=== PATIENT | male | born 1985 | race Caucasian/White ===

== ENCOUNTER 2022-05-24 17:46 | Emergency (ER) | payer MEDICAID, OTHER ==
[2022-05-24] MEDS ORDERED: LIDOCAINE 1% 2 ML VIAL MC ONE (19:52)
[2022-05-24] MEDS ORDERED: cefTRIAXone 1 GM VIAL IM STA (19:52)
--- NOTE | 2022-05-24 20:03 | ED Physician Documentation ---
History of Present Illness - Stated complaint Stated Complaint: TOOTH PX - Chief complaint Chief Complaint: Heent - History obtained from History obtained from: Patient - History of Present Illness Timing: Other Pain level max: 6 Pain level now: 6 - Additonal information Additional information: 36-year-old male presents to the emergency department with ongoing left upper dental pain. He states this started several weeks ago but has been steadily worsening. Unable to see a dentist yet. Came here for antibiotics. No fevers. No chills. Worse with eating, drinking. 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 Review of Systems Constitutional: denies: Fever, Chills GI: denies: Vomiting PD PAST MEDICAL HISTORY - Past Medical History Past Medical History: No - Past Surgical History Past Surgical History: No - Present Medications Home Medications: Ambulatory Orders Medication Instructions Recorded Confirmed clindamycin HCL [Cleocin HCl] 300 mg PO Q6H #40 cap 05/24/22 - Allergies Allergies/Adverse Reactions: Allergies Allergy/AdvReac Type Severity Reaction Status Date / Time Penicillins Allergy Anaphylaxis Verified 05/24/22 17:55 - Living Situation Living Arrangement: reports: At home - Social History Does the pt have substance abuse?: Yes Substance Use and Type: Meth - Family History Family history: reports: Non contributory PD ED PE NORMAL - Vitals Vital signs reviewed: Yes - General General: Alert and oriented X 3, No acute distress, Well developed/nourished - HEENT HEENT: PERRL, Moist mucous membranes, Other (Poor dentition throughout. There is a cracked tooth in the left upper molar area. No gingival swelling. No abscess. No facial swelling. Normal phonation. No trismus.) - Neck Neck: No adenopathy - Cardiac Cardiac: RRR - Respiratory Respiratory: No respiratory distress, Clear bilaterally - Derm Derm: Warm and dry - Neuro Neuro: Alert and oriented X 3 Results - Vitals Vitals: Vital Signs - 24 hr 05/24/22 05/24/22 17:52 20:43 Temperature 36.6 C Heart Rate 67 62 Respiratory 18 16 Rate Blood Pressure 148/80 H 135/87 H O2 Saturation 100 100 Oxygen O2 Source Room air PD MEDICAL DECISION MAKING - ED course Complexity details: considered differential, d/w patient ED course: 36-year-old male with poor dentition and multiple dental caries. Will place on antibiotics until he can be seen by dentistry next week. No drainable abscess. Patient counseled regarding signs and symptoms for which I believe and urgent re-evaluation would be necessary. Patient with good understanding of and agreement to plan and is comfortable going home at this time This document was made in part using voice recognition software. While efforts are made to proofread this document, sound alike and grammatical errors may occur. Departure - Departure Disposition: 01 Home, Self Care Clinical Impression: Pain due to dental caries Condition: Good Instructions: ED Tooth Pain Follow-Up: your,dentist next week [Other] Prescriptions: clindamycin HCL [Cleocin HCl] 300 mg PO Q6H #40 cap Comments: Your antibiotics were sent to [facility] in [place]. Please follow-up with a dentist next week for further care. Please return if you worsen. Discharge Date/Time: 05/24/22 20:44
[2022-05-24 20:43] VITALS: BP 135/87
== END 2022-05-24 20:44 | disposition home or self-care (01) ==
LOC: ED 17:46
DX: K02.9 Dental caries, unspecified (principal); K03.81 Cracked tooth; K08.89 Other specified disorders of teeth and supporting structures; F15.10 Other stimulant abuse, uncomplicated
CPT/HCPCS: 96372; 99282; 99283

== ENCOUNTER 2022-06-08 06:19 | Emergency (ER) | payer MEDICAID ==
[2022-06-08 06:27] VITALS: BP 141/86
--- NOTE | 2022-06-08 06:35 | ED Physician Documentation ---
PD HPI HEENT - Stated complaint Stated Complaint: LT SIDE TOOTH PX - Chief complaint Chief Complaint: Heent - History obtained from History obtained from: Patient - History of Present Illness Timing - onset: How many weeks ago (2.5 weeks) Timing - details: Gradual onset Pain level max: 6 Pain level now: 4 Location: Tooth Improves: Nothing Associated symptoms: No: Fever, Unable to swallow Recently seen: Emergency Dept - Additional information Additional information: c/o approximately 2.5 weeks of tooth pain. He was evaluated for this in this ED 05/24/22, given IM rocephin and rx for clindamycin. He has completed the course of clindamycin but no improvement in symptoms; he says the pain has actually, gradually worsened. He says [facility] has told him they cannot evaluate h im until any infection he has is resolved. Review of Systems Constitutional: denies: Fever Throat: reports: Dental pain / toothache. denies: Sore throat PD PAST MEDICAL HISTORY - Past Medical History Past Medical History: No Cardiovascular: None Respiratory: None Neuro: None Endocrine/Autoimmune: None GI: None : None HEENT: None Psych: None Musculoskeletal: None Derm: None - Past Surgical History Past Surgical History: No - Present Medications Home Medications: Ambulatory Orders Medication Instructions Recorded Confirmed Cefdinir 300 mg PO BID #20 cap 06/08/22 HYDROcod/ACETAM 5/325 [[place] 5/325] 1 - 2 tablet PO Q6H PRN #14 tablet 06/08/22 - Allergies Allergies/Adverse Reactions: Allergies Allergy/AdvReac Type Severity Reaction Status Date / Time Penicillins Allergy Anaphylaxis Verified 06/08/22 06:27 - Social History Does the pt smoke?: Yes Smoking Status: Current every day smoker Does the pt drink ETOH?: No Does the pt have substance abuse?: Yes - Immunizations Immunizations are current?: No - POLST Patient has POLST: No PD ED PE NORMAL - Vitals Vital signs reviewed: Yes - General General: Alert and oriented X 3, Well developed/nourished, Other (appears uncomfortable (mild/moderate painful distress)) - Neck Neck: Supple, no meningeal sign PD ED PE EXPANDED - HEENT HEENT: Dental decay (extensive general dental decay/attrition. He has tenderness to percussion of left maxillary first molar (there is only part of the tooth remaining). no gingival swelling, erythema. no discharge. no facial swelling ) Results - Vitals Vitals: Vital Signs - 24 hr 06/08/22 06/08/22 06/08/22 06:25 06:29 07:00 Temperature 37.1 C Heart Rate 88 Respiratory 17 16 16 Rate Blood Pressure 141/86 H O2 Saturation 100 Oxygen O2 Source Room air PD MEDICAL DECISION MAKING - ED course Complexity details: reviewed old records, considered differential, d/w patient ED course: presents with worsening dental pain despite completing full course of clindamycin. He says he has an allergy to penicillin (rash, throat swelling, difficulty breathing). He was given IM rocephin on ED visit 05/24/22 without adverse reaction and thus I am prescribing ten day course of cefdinir. He is requesting pain medication, says ibuprofen is no longer effective. He is given vicodin take-home pack and vicodin is also prescribed. Return precautions discussed. He will continue to pursue follow up with a dentist I am prescribing a short course of short-acting opioid pain medication for this patient. I have reviewed the patients [employer]MENT [employer] and no concerning findings were noted. I have discussed that the opioids are for short term therapy only, and will not be refilled from the ED. Departure - Departure Disposition: 01 Home, Self Care Clinical Impression: Pain due to dental caries Condition: Good Instructions: ED Tooth Pain Prescriptions: Cefdinir 300 mg PO BID #20 cap HYDROcod/ACETAM 5/325 [[place] 5/325] 1 - 2 tablet PO Q6H PRN #14 tablet PRN Reason: Pain Comments: Follow up with a dentist, next available appointment. Prescriptions for hydrocodone/acetaminophen (vicodin; narcotic pain medication) and cefdinir (antibiotic) have been electronically submitted to [facility] in [place]. I am prescribing a short course of narcotic pain medication for you. These are potentially dangerous and addictive medications that should be used carefully. These medications may constipate you. Take an ovfq-amp-iowqlic stool softener (docusate) twice daily with plenty of water while taking these medications. If you go 24 hours without a bowel movement, take [id number] miralax, per package instructions. Do not drink or drive while taking these medications. If you received narcotic or sedating medications while in the emergency department, do not drive for 24 hours. Store this medication in a safe, secure place and out of reach of children. It is a violation of federal law to give or sell this medication to another person or to use in a manner other than prescribed. The ED will not refill narcotic prescriptions, including prescriptions lost or stolen. To dispose of unwanted medications: 1. [facility] [address] in [place] has a medication drop box. They accept prescription medications (in pill form) Friday through Friday 9:00 a.m. to 5:00 p.m. 2. The [facility] accepts prescription medications (in pill form only) for disposal year round. Call for more information. 3. Contact the [facility] for the next [facility] sponsored prescription drug collection event. , [phone], or [phone]; Discharge Date/Time: 06/08/22 07:01
[2022-06-08] MEDS ORDERED: HYDROcod/ACET 5/325 Prepack 4 PO STA (06:48)
== END 2022-06-08 07:01 | disposition home or self-care (01) ==
LOC: ED 06:19
DX: K02.9 Dental caries, unspecified (principal); F17.200 Nicotine dependence, unspecified, uncomplicated
CPT/HCPCS: 99282

== ENCOUNTER 2023-03-26 19:15 | Emergency (ER) | payer MEDICAID ==
[2023-03-26 19:28] VITALS: BP 142/79; O2SAT 99
--- NOTE | 2023-03-26 19:55 | ED Physician Documentation ---
History of Present Illness - Stated complaint Stated Complaint: SOA/FACE SWELLING - Chief complaint Chief Complaint: Heent - Additonal information Additional information: 37-year-old male presenting to the emergency department with right-sided upper jaw pain with facial swelling. Past medical significant for recurrent dental infections and dental decay. Has been seen at this facility twice previously for similar presentation. Reports allergy to penicillins, has responded well to courses of clindamycin in the past. States this is similar to previous dental infections but "never this severe". Denies any fever. Report is waiting for follow-up with primary dentistry. States "can I have something for the pain right now". Review of Systems Constitutional: denies: Fever Eyes: denies: Loss of vision Ears: denies: Loss of hearing Nose: denies: Rhinorrhea / runny nose Throat: reports: Dental pain / toothache Cardiac: denies: Chest pain / pressure Respiratory: denies: Dyspnea GI: denies: Abdominal Pain : denies: Dysuria PD PAST MEDICAL HISTORY - Past Medical History Cardiovascular: None Respiratory: None Neuro: None Endocrine/Autoimmune: None GI: None : None HEENT: None Psych: None Musculoskeletal: None Derm: None - Past Surgical History Past Surgical History: No - Present Medications Home Medications: Ambulatory Orders Medication Instructions Recorded Confirmed Ketorolac [Toradol] 10 mg PO Q6H #30 tablet 03/26/23 clindamycin HCL [Cleocin HCl] 300 mg PO Q6H #40 cap 03/26/23 - Allergies Allergies/Adverse Reactions: Allergies Allergy/AdvReac Type Severity Reaction Status Date / Time Penicillins Allergy Anaphylaxis Verified 03/26/23 19:24 - Social History Does the pt smoke?: Yes Smoking Status: Current every day smoker Does the pt drink ETOH?: No Does the pt have substance abuse?: Yes - Immunizations Immunizations are current?: No - POLST Patient has POLST: No PD ED PE NORMAL - General General: Alert and oriented X 3 - HEENT HEENT: Other (Significant dental decay. Tenderness to palpation along the right upper molar with no palpable apical abscess. No uvular deviation, sublingual elevation or tracheal mobility. Tender right-sided jugulodigastric adenopathy. No exudates or enlarged tonsils.) - Neck Neck: Supple, no meningeal sign - Cardiac Cardiac: RRR - Respiratory Respiratory: No respiratory distress - Abdomen Abdomen: Normal bowel sounds Results - Vitals Vitals: Vital Signs - 24 hr 03/26/23 19:16 Temperature 37.5 C Heart Rate 81 Respiratory 20 Rate Blood Pressure 142/79 H O2 Saturation 99 Oxygen O2 Source Room air PD Medical Decision Making - ED course Complexity details: reviewed results, considered differential, d/w patient ED course: Patient 37-year-old male presenting to the emergency department with recurrent dental infection. No indications apical abscess, peritonsillar abscess, deep space neck infection. Significant poor dentition. Counseled on importance of follow-up with dentistry and appropriate dental hygiene. Patient given hydrocod one and a dose of clindamycin here in the emergency department. Discharged with course of oral Toradol and clindamycin sent to his preferred pharmacy. Clear return precautions given. Departure - Departure Disposition: 01 Home, Self Care Clinical Impression: Pain due to dental caries Instructions: ED Tooth Pain Prescriptions: clindamycin HCL [Cleocin HCl] 300 mg PO Q6H #40 cap Ketorolac [Toradol] 10 mg PO Q6H #30 tablet Comments: Thank you for allowing us to care for you today at [facility]. Today in the emergency department you were diagnosed with a dental infection. I have sent a prescription for clindamycin as well as a strong nonsteroidal anti- inflammatory, Toradol to your preferred pharmacy, [facility] in [place]. It is very important that you follow-up with a dentist as soon as possible. Infection such as this are highly likely to recur without evaluation by a dental professional. I also recommend following up your primary care doctor. I recommend regular use of antiseptic mouthwashes as well as brushing your teeth for no less than 2 minutes after every meal. If you have new or worsening symptoms please not hesitate to return.
[2023-03-26] MEDS ORDERED: CLINDAMYCIN 150 MG CAPSULE PO STA (19:57)
[2023-03-26] MEDS ORDERED: HYDROcod/ACETAM 5/325 MG TABLET PO STA (19:57)
== END 2023-03-26 20:28 | disposition home or self-care (01) ==
LOC: ED 19:15
DX: K02.9 Dental caries, unspecified (principal); F17.200 Nicotine dependence, unspecified, uncomplicated
CPT/HCPCS: 99282; 99283; A9270